=== PATIENT | female | born 1945 | race Caucasian/White ===

== ENCOUNTER → 2020-09-02 | Outpatient (CLI) | payer MEDICARE ==
[2020-08-15 16:35] VITALS: BP 160/64
[~2020-09-02] MED LIST: ALLO100T PO; FURO80TA72 PO; GABA600T7 PO; METO50TA6 PO; OMEP20CA16 PO; POTA20TA4 PO; PRED-220 PO; TRAM50TA PO
[2020-09-02 12:42] LABS: CALCIUM 8.5 mg/dL (8.5-10.1); GFR 53.8; POTASSIUM 3.4 mmol/L (3.5-5.1)
== END ==
LOC: SPEC 12:14
PROVIDERS: ATTEND Family Medicine
DX: I50.32 Chronic diastolic (congestive) heart failure (principal)
CPT/HCPCS: 36415; 80048